=== PATIENT | female | born 1985 | race African-American/Black ===

== ENCOUNTER 2019-11-11 12:33 | Emergency (ER) | payer SELFPAY ==
[~2019-11-11] VITALS: Ht 175.3 cm; Wt 86.3 kg
[~2019-11-11 12:33] MED LIST: ONDA4TAB7 PO
[2019-11-11 13:28] VITALS: BP 137/87
[2019-11-11] MEDS ORDERED: DICL50TA2 PO (14:00)
[2019-11-11] MEDS ORDERED: CYCL10TA2 PO (14:00)
[2019-11-11] MEDS ORDERED: METH4TAB2 PO (14:00)
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
== END 2019-11-11 14:29 | disposition home or self-care (01) ==
LOC: ER 12:33
DX: R10.84 Generalized abdominal pain (principal); G89.11 Acute pain due to trauma; I10 Essential (primary) hypertension; J45.909 Unspecified asthma, uncomplicated; Z88.0 Allergy status to penicillin; V49.88XA Car occupant (driver) (passenger) injured in other specified transport accidents, initial encounter; Y93.89 Activity, other specified; Y92.488 Other paved roadways as the place of occurrence of the external cause; Y99.8 Other external cause status
CPT/HCPCS: 99283

== ENCOUNTER 2019-11-17 17:34 | Emergency (ER) | payer BC ==
[~2019-11-17] VITALS: Ht 175.3 cm; Wt 81.8 kg
[~2019-11-17 17:34] MED LIST changes: +CYCL10TA2 PO; +DICL50TA2 PO; +METH4TAB2 PO
[2019-11-17 17:56] VITALS: BP 145/91
[2019-11-17] MEDS ORDERED: DEXAMETHASONE 4 MG TABLET PO STA (18:09)
[2019-11-17] MEDS ORDERED: BENZ100C PO (18:11)
--- NOTE | 2019-11-17 18:12 | PHYS DOC ---
Past Medical History Past Medical History: Asthma, Hypertension Past Surgical History: No Surgical History Alcohol Use: Occasionally Drug Use: Marijuana Adult General Chief Complaint Chief Complaint: FLU SYMPTOM [facility] HPI Patient is a 34 year old female who presents with cough, runny nose, sore throat, hot/cold, and loss of appetite that has been ongoing for 3 days. States she has been able to keep fluids down at home. Denies additional symptoms. Complete ROS were reviewed and found to be within normal limits, except as documented in the HPI Allergies Allergies Allergies Coded Allergies Type Severity Reaction Last Updated Verified Penicillins Allergy Unknown Unknown 03/31/16 Yes Physical Exam Physical Exam Constitutional: Well developed, well nourished, no acute distress, non-toxic appearance. [] HENT: Normocephalic, atraumatic, bilateral external ears normal, oropharynx moist, tonsils are 1+/4 with no oral exudates, nose normal. [] Eyes: PERRLA, EOMI, conjunctiva normal, no discharge. [] Neck: Normal range of motion, no tenderness, supple, no stridor. [] Cardiovascular:Heart rate regular rhythm, no murmur [] Lungs & Thorax: Bilateral breath sounds clear to auscultation [] Skin: Warm, dry, no erythema, no rash. [] Back: No tenderness, no CVA tenderness. [] Extremities: No tenderness, no cyanosis, no clubbing, ROM intact, no edema. [] Neurologic: Alert and oriented X 3, normal motor function, normal sensory function, no focal deficits noted. [] Psychologic: Affect normal, judgement normal, mood normal. [] Current Patient Data Vital Signs Vital Signs Date Time Temp Pulse Resp B/P (MAP) Pulse Ox O2 Delivery O2 Flow Rate FiO2 11/17/19 17:56 98.1 90 18 145/91 (109) 98 Room Air 98.1 EKG EKG [] Radiology/Procedures Radiology/Procedures [] Course & Med Decision Making Course & Med Decision Making Pertinent Labs and Imaging studies reviewed. (See chart for details) The patient appears to have a virus clinically. Discussed with patient the importance of drinking plenty of fluids. I also discussed the importance of rest. Discussed with the patient that she can take Zyrtec per label instructions for runny nose. Also discussed the proper control of fever by rotating Tylenol and Ibuprofen at home. Will give the patient Decadron in the ER for symptom control. Dragon Disclaimer Dragon Disclaimer This electronic medical record was generated, in whole or in part, using a voice recognition dictation system. Departure Departure Impression: Primary Impression: Acute viral syndrome Disposition: HOME, SELF-CARE Condition: STABLE Referrals: UNKNOWN PCP NAME (PCP) Patient Instructions: Viral Syndrome Additional Instructions: Thank you for visiting [facility]. We appreciate you trusting us with your care. If any additional problems come up don't hesitate to return to visit us. Please follow up with your primary care provider so they can plan additional care if needed and know about the problem that you had. If symptoms worsen come back to the Emergency Department. Any concerning symptoms that start such as chest pain, shortness of air, weakness or numbness on one side of the body, running high fevers or any other concerning symptoms return to the ER. Please fill your medications at any pharmacy and follow the prescription instructions. Please drink plenty of fluids. If unable to keep fluids down please return to ER. Please get Tylenol and Ibuprofen over the counter. Give each medication every 6 hours as directed by the medication labels. In order to utilize the peak of the medications stagger the medications to where the child is getting one of the medications every 3 hours. For example if you give Ibuprofen at 3 PM, you then give Tylenol at 6 PM and Ibuprofen again at 9 PM, and then Tylenol at midnight. Please get Zyrtec over the counter and take per label instructions for aiden carcamo. Scripts Benzonatate (TESSALON PERLE) 100 Mg Capsule 100 MG PO TID PRN for COUGH, #21 CAP Prov: DOMENICA CUBA APRN 11/17/19 DOMENICA CUBA APRN Nov 17, 2019 18:12
== END 2019-11-17 18:24 | disposition home or self-care (01) ==
LOC: ER 17:34
DX: B34.9 Viral infection, unspecified (principal); R63.0 Anorexia; R09.89 Other specified symptoms and signs involving the circulatory and respiratory systems; R05 Cough; J45.909 Unspecified asthma, uncomplicated; I10 Essential (primary) hypertension; F12.90 Cannabis use, unspecified, uncomplicated; Z88.0 Allergy status to penicillin
CPT/HCPCS: 99283; J8540

== ENCOUNTER 2021-11-24 14:19 | Emergency (ER) | payer BC, OTHER ==
[~2021-11-24] VITALS: Ht 175.3 cm; Wt 90.1 kg
[~2021-11-24 14:19] MED LIST changes: +BENZ100C PO; +CYCL10TA19 PO; -CYCL10TA2 PO
[2021-11-24 14:20] VITALS: BP 148/91
[2021-11-24] MEDS ORDERED: ORPHENADRINE CITRATE 60 MG/2 ML VIAL. IM ONE (14:45)
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
[2021-11-24] MEDS ORDERED: CYCL5TAB PO (15:26)
== END 2021-11-24 15:37 | disposition home or self-care (01) ==
LOC: ER 14:19
DX: M54.2 Cervicalgia (principal); G89.11 Acute pain due to trauma; M54.50 Low back pain, unspecified; M79.642 Pain in left hand; M79.641 Pain in right hand; J45.909 Unspecified asthma, uncomplicated; I10 Essential (primary) hypertension; F17.200 Nicotine dependence, unspecified, uncomplicated; Z88.0 Allergy status to penicillin; V49.49XA Driver injured in collision with other motor vehicles in traffic accident, initial encounter; Y93.89 Activity, other specified; Y92.488 Other paved roadways as the place of occurrence of the external cause; Y99.8 Other external cause status
CPT/HCPCS: 72040; 72100; 73130; 96372; 99284; J2360